=== PATIENT | female | born 1995 | race African-American/Black ===

== ENCOUNTER 2018-08-20 07:30 | Emergency (ER) | payer BC ==
[~2018-08-20] VITALS: Ht 162.6 cm; Wt 96.2 kg
[2018-08-20] MEDS ORDERED: METOCLOPRAMIDE HCL 10 MG/2 ML VIAL. IV ONE (08:00)
[2018-08-20] MEDS ORDERED: IV NORMAL SALINE 1000ML BAG 1,000 ML IV ONE (08:00)
--- NOTE | 2018-08-20 08:07 | PHYS DOC ---
Adult General Chief Complaint Chief Complaint: VOMITING IN HPI HPI 22-year-old female presents to ER with complaints of nausea and vomiting with positive home tests in the past couple of weeks. Patient reports she has had intermittent lower abdominal cramping. Patient denies urinary symptoms, pelvic pain/pressure or vaginal bleeding/discharge. Patient reports 3 episodes of vomiting this morning denies diarrhea. Patient denies fever, chest pain or palpitations, or dizziness. Patient reports this would make her 2 para 0 as she had had previous molar . Patient denies concerns for STDs. She reports she is scheduled at [facility] 09/05/18 for her first [facility] TYPE OPERATOR appointment. Review of Systems Review of Systems Constitutional: Denies fever. Denies lethargy Eyes: Denies change in visual acuity, redness, or eye pain [] HENT: Denies nasal congestion or sore throat [] Respiratory: Denies cough or shortness of breath [] Cardiovascular: Denies chest pain or palpitations GI: Denies bloody stools or diarrhea. Reports intermittent lower abdominal cramping. Reports nausea and vomiting intermittently : Denies dysuria or hematuria. Denies vaginal bleeding or discharge Musculoskeletal: Denies back pain or joint pain [] Integument: Denies rash or skin lesions [] Neurologic: Denies headache, focal weakness or sensory changes. Denies dizziness Endocrine: Denies polyuria or polydipsia [] All other systems were reviewed and found to be within normal limits, except as documented in this note. Current Medications Current Medications Current Medications Medications (Trade) Dose Ordered Sig/Stone Start Time Stop Time Status Last Admin Dose Admin Metoclopramide HCl (Reglan Vial) 10 mg 1X ONCE 08/20/18 08:00 08/20/18 08:26 DC 08/20/18 08:37 10 MG Sodium Chloride 1,000 ml @ 1,000 mls/hr 1X ONCE 08/20/18 08:00 08/20/18 08:59 DC 08/20/18 08:34 1,000 MLS/HR Allergies Allergies Allergies Coded Allergies Type Severity Reaction Last Updated Verified No Known Drug Allergies 08/20/18 No Physical Exam Physical Exam Constitutional: Well developed, well nourished, no acute distress, non-toxic appearance. [] HENT: Normocephalic, atraumatic, oropharynx moist, nose normal. [] Eyes: Pupils equal, conjunctiva normal, no discharge. [] Neck: Normal range of motion, no tenderness, supple Cardiovascular: Heart rate regular rhythm, no murmur [] Lungs & Thorax: Bilateral breath sounds clear to auscultation. Resp. equal/ nonlabored Abdomen: Bowel sounds normal, soft-distention or rigidity, no tenderness on palpation, no masses, no pulsatile masses. [] Skin: Warm, dry, no erythema, no rash. [] Back: No tenderness, no CVA tenderness. [] Extremities: No tenderness, no cyanosis, no clubbing, ROM intact, no edema. [] Neurologic: Alert and oriented X 3, normal motor function, normal sensory function, no focal deficits noted. [] Psychologic: Affect normal, judgement normal, mood normal. [] Current Patient Data Vital Signs Vital Signs Date Time Temp Pulse Resp B/P (MAP) Pulse Ox O2 Delivery O2 Flow Rate FiO2 08/20/18 10:00 52 24 98/46 (63) 99 08/20/18 07:56 98.5 Room Air 98.5 Lab Values Laboratory Tests Test 08/20/18 08:48 08/20/18 09:50 White Blood Count 8.5 x10^3/uL (4.0-11.0) Red Blood Count 3.86 x10^6/uL (3.50-5.40) Hemoglobin 12.0 g/dL (12.0-15.5) Hematocrit 34.8 % (36.0-47.0) L Mean Corpuscular Volume 90 fL (79-100) Mean Corpuscular Hemoglobin 31 pg (25-35) Mean Corpuscular Hemoglobin Concent 35 g/dL (31-37) Red Cell Distribution Width 13.8 % (11.5-14.5) Platelet Count 294 x10^3/uL (140-400) Neutrophils (%) (Auto) 61 % (31-73) Lymphocytes (%) (Auto) 30 % (24-48) Monocytes (%) (Auto) 8 % (0-9) Eosinophils (%) (Auto) 0 % (0-3) Basophils (%) (Auto) 1 % (0-3) Neutrophils # (Auto) 5.2 x10^3uL (1.8-7.7) Lymphocytes # (Auto) 2.6 x10^3/uL (1.0-4.8) Monocytes # (Auto) 0.7 x10^3/uL (0.0-1.1) Eosinophils # (Auto) 0.0 x10^3/uL (0.0-0.7) Basophils # (Auto) 0.1 x10^3/uL (0.0-0.2) Maternal Serum HCG Beta Subunit 49127 mIU/mL (0-5) H Sodium Level 137 mmol/L (136-145) Potassium Level 3.7 mmol/L (3.5-5.1) Chloride Level 103 mmol/L (98-107) Carbon Dioxide Level 25 mmol/L (21-32) Anion Gap 9 (6-14) Blood Urea Nitrogen 6 mg/dL (7-20) L Creatinine 0.6 mg/dL (0.6-1.0) Estimated GFR (Cockcroft-Gault) 151.3 Glucose Level 80 mg/dL (70-99) Calcium Level 9.0 mg/dL (8.5-10.1) Lipase 61 U/L (73-393) L Urine Collection Type Void Urine Color Yellow Urine Clarity Clear Urine pH 7.0 Urine Specific [place] >=1.030 Urine Protein 30 mg/dL (NEG-TRACE) Urine Glucose (UA) Negative mg/dL (NEG) Urine Ketones (Stick) 40 mg/dL (NEG) Urine Blood Negative (NEG) Urine Nitrite Negative (NEG) Urine Bilirubin Negative (NEG) Urine Urobilinogen Dipstick 1.0 mg/dL (0.2 mg/dL) Urine Leukocyte Esterase Negative (NEG) Urine RBC 0 /HPF (0-2) Urine WBC 1-4 /HPF (0-4) Urine Squamous Epithelial Cells Few /LPF Urine Bacteria Moderate /HPF (0-FEW) Urine Mucus Marked /LPF Laboratory Tests 08/20/18 08:48 Laboratory Tests 08/20/18 08:48 Microbiology 08/20/18 Urine Culture - Final, Complete 08/20/18 Urine Culture Result 1 (ALEJANDRA) - Final, Complete 08/20/18 Antimicrobic Susceptibility - Final, Complete EKG EKG [] Radiology/Procedures Radiology/Procedures PROCEDURE: OB < 14 WKS OB < 14 WKS History: Lower abdominal cramping, nausea and vomiting Comparison: None. Findings: Multiple transabdominal sonographic images of pelvis are submitted. Uterus measures 10.1 x 6.2 x 8.3 cm. There is a single intrauterine gestational sac. Gestational sac morphology is within normal limits. Amniotic fluid volume is within normal limits. There is visible yolk sac and pole. Placenta and anatomy are not well visualized at this age of the . There is demonstrable cardiac activity 157 bpm. [place]-rump length measurement of 1.71 cm corresponds with 8 weeks 1 day. Adjusted ultrasound age is 8 weeks 1 day with estimated delivery date of 03/31/2019. LMP age is 12 weeks 2 days with estimated delivery date of 03/02/2019. Left ovary measured 2.7 x 2.2 x 2.2 cm with normal low resistance vascularity. Right ovary measured 3.5 x 3.3 x 2.3 cm with normal low resistance vascularity. No free fluid is demonstrated. Impression: 1. There is a single viable intrauterine , adjusted ultrasound age 8 weeks 1 day with estimated delivery date by ultrasound of 03/31/2019. Electronically signed by: Cassy Garrett MD (08/20/2018 9:35 AM) [id number] DICTATED and SIGNED BY: CASSY GARRETT MD DATE: 08/20/18 0932 Course & Med Decision Making Course & Med Decision Making Pertinent Labs and Imaging studies reviewed. (See chart for details) 0945: On reevaluation patient reports following IV fluids and dose of Reglan her symptoms have improved. At this time she is denying any abdominal pain or nausea. She is nontoxic in appearance and in no visible distress. Patient is wanting to be discharged from ER as she is feeling better. Patient has follow- up appointment scheduled on 09/05/18. Patient has had no vomiting episodes while in the ER. Test results were discussed. HCG quant 98038 and OB US reported "single viable intrauterine , adjusted ultrasound age 8 weeks 1 day with estimated delivery date by ultrasound of 03/31/2019". Labs unremarkable. UA with 30protein 40 ketones neg. blood/leuks/nitrates- this was obtained prior to IV flds. With pt having improved sxs and stable will discharge home with education on s&s to return to ER for. She was advised that if sxs worsen or with concerns she should call [facility] TYPE OPERATOR or return to ER. Discharge instructions were discussed. Staff Physician Addendum: I was working in the ER during the course of this patient's visit. I was available for consultation as needed, but I was not directly involved in the care of this patient. Dragon Disclaimer Dragon Disclaimer This electronic medical record was generated, in whole or in part, using a voice recognition dictation system. Departure Departure Impression: Primary Impression: Additional Impression: Nausea and vomiting in Disposition: HOME, SELF-CARE Condition: STABLE Referrals: ADALBERTO COCHRAN (PCP) Patient Instructions: ABCs of , Abdominal Pain During , Nausea and Vomiting Additional Instructions: Increase fluid intake to remain hydrated. Keep your scheduled follow-up appointment on 09/05/18 with your [facility] TYPE OPERATOR doctor- if symptoms change or with concerns call for earlier appointment. [place] hCG quantitative level was [address]. Scripts Metoclopramide Hcl (REGLAN) 10 Mg Tablet 1 TAB PO TID PRN for NAUSEA, #9 TAB 0 Refills Prov: SKYLER BRAN APRN 08/20/18 Problem Qualifiers SKYLER BRAN APRN Aug 20, 2018 08:07 DEQUAN SANTOS MD Aug 23, 2018 20:32
[2018-08-20 08:59] LABS: BASO # 0.1 x10^3/uL (0.0-0.2); BASO % 1 % (0-3); EOS % 0 % (0-3); HEMATOCRIT 34.8 % (36.0-47.0); LYMPH # 2.6 x10^3/uL (1.0-4.8); LYMPH % 30 % (24-48); MEAN CORPUSCULAR HEMOGLOBIN 31 pg (25-35); MEAN CORPUSCULAR HGB CONC 35 g/dL (31-37); MEAN CORPUSCULAR VOLUME 90 fL (79-100); MONO # 0.7 x10^3/uL (0.0-1.1); MONO % 8 % (0-9); NEUT # 5.2 x10^3uL (1.8-7.7); NEUT % 61 % (31-73); PLATELET COUNT 294 x10^3/uL (140-400); RED BLOOD COUNT 3.86 x10^6/uL (3.50-5.40); RED CELL DISTRIBUTION WIDTH 13.8 % (11.5-14.5); WHITE BLOOD COUNT 8.5 x10^3/uL (4.0-11.0)
[2018-08-20 09:11] LABS: CREATININE 0.6 mg/dL (0.6-1.0); GFR 151.3; POTASSIUM 3.7 mmol/L (3.5-5.1)
--- NOTE | 2018-08-20 09:39 | RAD ---
OB < 14 WKS History: Lower abdominal cramping, nausea and vomiting Comparison: None. Findings: Multiple transabdominal sonographic images of pelvis are submitted. Uterus measures 10.1 x 6.2 x 8.3 cm. There is a single intrauterine gestational sac. Gestational sac morphology is within normal limits. Amniotic fluid volume is within normal limits. There is visible yolk sac and pole. Placenta and anatomy are not well visualized at this age of the . There is demonstrable cardiac activity 157 bpm. [place]-rump length measurement of 1.71 cm corresponds with 8 weeks 1 day. Adjusted ultrasound age is 8 weeks 1 day with estimated delivery date of 03/31/2019. LMP age is 12 weeks 2 days with estimated delivery date of 03/02/2019. Left ovary measured 2.7 x 2.2 x 2.2 cm with normal low resistance vascularity. Right ovary measured 3.5 x 3.3 x 2.3 cm with normal low resistance vascularity. No free fluid is demonstrated. Impression: 1. There is a single viable intrauterine , adjusted ultrasound age 8 weeks 1 day with estimated delivery date by ultrasound of 03/31/2019. Electronically signed by: Zion Campos MD (08/20/2018 9:35 AM) [id number]
[2018-08-20] MEDS ORDERED: METO10TA81 PO (09:56)
[2018-08-20 10:00] VITALS: BP 98/46
[2018-08-20 10:19] LABS: BILIRUBIN,URINE NEGATIVE (NEG); CLARITY,URINE CLEAR; COLOR,URINE YELLOW; NITRITE,URINE NEGATIVE (NEG); PROTEIN,URINE 30 mg/dL (NEG-TRACE)
[2018-08-20 10:31] LABS: SQUAMOUS EPITHELIAL CELL,UR FEW /LPF
[2018-08-20 10:32] LABS: BACTERIA,URINE MODERATE /HPF (0-FEW); RBC,URINE 0 /HPF (0-2)
== END 2018-08-20 10:48 | disposition home or self-care (01) ==
LOC: ER 07:30
DX: O21.8 Other vomiting complicating pregnancy (principal); R10.30 Lower abdominal pain, unspecified; Z3A.08 8 weeks gestation of pregnancy
CPT/HCPCS: 36415; 76801; 80048; 81001; 83690; 84702; 85025; 87086; 96361; 96374; 99284; J2765; J7030